=== PATIENT | male | born 1965 | race Caucasian/White ===

== ENCOUNTER 2016-05-31 20:55 | Emergency (ER) | payer MEDICARE | END 2016-06-01 00:57 | disposition home or self-care (01) | LOC: D.ER 20:55 | DX: M54.5 Low back pain (principal) ==

== ENCOUNTER 2016-12-03 07:58 | Emergency (ER) | payer MEDICARE | END 2016-12-03 09:33 | disposition home or self-care (01) | LOC: D.ER 07:58 | DX: M54.5 Low back pain (principal); F17.200 Nicotine dependence, unspecified, uncomplicated ==

== ENCOUNTER 2016-12-11 15:35 | Emergency (ER) | payer MEDICARE | END 2016-12-11 18:51 | disposition home or self-care (01) | LOC: D.ER 15:35 | DX: M54.5 Low back pain (principal); M79.1 Myalgia ==

== ENCOUNTER 2017-03-21 20:05 | Emergency (ER) | payer MEDICARE | END 2017-03-22 02:48 | disposition home or self-care (01) | LOC: D.ER 20:05 | DX: J20.9 Acute bronchitis, unspecified (principal) ==